=== PATIENT | male | born 1985 | race Hispanic/Latino ===

== ENCOUNTER 2018-06-29 06:03 | Day surgery (SDC) | payer OTHER ==
[2018-06-29] MEDS ORDERED: Midazolam 2 MG/2 ML VIAL ONE (07:14)
[2018-06-29] MEDS ORDERED: Propofol 10 mg/ml Inj (20 ML) ONE (07:15)
[2018-06-29] MEDS ORDERED: ceFAZolin 1 gm in NS 2 GM/200 ML BAG IVPB ONE (07:28)
[2018-06-29] MEDS ORDERED: Sodium Chloride 0.9% 40 ML IV ONE (07:28)
[2018-06-29] MEDS ORDERED: Bupivacaine 0.25% 20 ML INJ IJ ONE (07:29)
[2018-06-29] MEDS ORDERED: Lidocaine/Epinephrine 1% 1:100000 10 ML IJ ONE (07:29)
[2018-06-29] MEDS ORDERED: Bupivacaine Liposomal Inj 20 ml INFIL ONE (07:40)
[2018-06-29] MEDS ORDERED: Neostigmine 1:1000 (1 mg/ml) Inj ONE (09:24)
[2018-06-29] MEDS ORDERED: Rocuronium 10 mg/ml (5 ml) ONE (09:27)
[2018-06-29] MEDS ORDERED: HYDROmorphone 0.5 mg/0.5 ml ISec IVP PRN (09:53)
[2018-06-29] MEDS ORDERED: DiphenhydrAMINE 50 mg/ml Inj IVP PRN (09:53)
--- NOTE | 2018-06-29 09:54 | PCM.SURG1 ---
Surgeon's Initial Post Op Note - Surgeon's Notes Surgeon: Dr. Antony Mann General Road Foreman: POLY Marcus; Ashley Medina, PGY2 Type of Anesthesia: General Endo Pre-Operative Diagnosis: left ingiunal hernia Operative Findings: indirect left inguinal hernia Post-Operative Diagnosis: left indirect inguinal hernia Operation Performed: robotic assisted laparoscopic left inguinal hernia repair with mesh Specimen/Specimens Removed: none Estimated Blood Loss: EBL {In ML}: 5 Blood Products Given: N/A Drains Used: No Drains Post-Op Condition: Fair Date of Surgery/Procedure: 06/29/18 Time of Surgery/Procedure: 07:45
[2018-06-29] MEDS ORDERED: Oxycodone/Acetaminophen 5/325 mg Tab PO PRN (09:55)
[2018-06-29] MEDS ORDERED: Lactated Ringer's 500 ML IV ONE (11:45)
[2018-06-29 11:54] VITALS: TEMP 97.7
[2018-06-29 13:45] VITALS: BP 93/77; PULSE 59; RESP 18; O2SAT 99
--- NOTE | 2018-06-29 21:15 | OP ---
PROCEDURE DATE: 06/29/2018 PREOPERATIVE DIAGNOSIS: Left inguinal hernia. POSTOPERATIVE DIAGNOSIS: Left inguinal hernia. PROCEDURES DONE: 1. Robotic left inguinal hernia repair with a mesh. 2. Laparoscopic bilateral TAP block placement. SURGEON: Shakeel Mann MD GRINDING MACHINE OPERATOR AUTOMATIC: FRANCINE Gómez. ANESTHESIA: General endotracheal tube anesthesia. EBL: Around 10 mL. DRAIN: None. PATHOLOGY: None. COMPLICATIONS: None. INTRAOPERATIVE FINDINGS: The patient had a left indirect inguinal hernia and there was no lipoma of spermatic cord and on intraoperative steps, this is a 33-year-old male who was diagnosed with left inguinal hernia and the patient was consented for the robotic left inguinal hernia repair with mesh, possible bilateral repair, brought to the OR, placed supine on operating table. After induction of the anesthesia, the abdomen was prepped and draped in usual sterile fashion. The supraumbilical transverse incision was made using open technique. Peritoneal cavity was entered. Pneumo was created. Another 3.8 mm port was placed in upper abdomen. Robot was brought in. Camera arm as well as arm 1 and arm 2 were docked and the patient found to have left indirect inguinal hernia. The peritoneum was dissected from the left ASIS up to the midline. Dissection was carried down in the midline up to the space of Retzius laterally to the lateral abdominal wall and superiorly up to the inferior epigastric and inferiorly up to the pelvic brim. The vas deferens and the spermatic cord vessels were dissected free from the hernial sac. Hernial sac was reduced back into the peritoneal cavity. There was no lipoma of the spermatic cord identified, and now the left anatomical mesh was implanted. After proper implantation of the mesh, the peritoneum was sutured with 0-Vicryl interrupted suture as well as 3-0 V-Loc PDS continuous suture and the peritoneum was also sutured with PDS and after that, the procedure was converted to laparoscopic and laparoscopic bilateral TAP block was given. The 30:30 mL of the Exparel was injected into the left and right transverse abdominal muscle plane area and after proper TAP block, all the ports were taken out under vision. Pneumo was deflated. Umbilical port site was closed in two-layer, the fascia with 0-Vicryl interrupted sutures, skin with 4-0 Monocryl and dry sterile dressing was applied. The patient tolerated procedure well. Count of instrument and gauze was correct. There was no apparent complication. Shakeel Mann MD
== END 2018-06-29 13:40 | disposition home or self-care (01) ==
LOC: C.SDS 06:03
PROVIDERS: ATTEND Surgery Surgical Critical Care
DX: K40.90 Unilateral inguinal hernia, without obstruction or gangrene, not specified as recurrent (principal)
CPT/HCPCS: 49650; 64488; J0690; J1100; J1170; J2001; J2250; J2405; J2704; J2710; J3010; J7120